=== PATIENT | female | born 1960 | race Caucasian/White ===

== ENCOUNTER 2018-05-13 09:07 | Day surgery (SDC) | payer OTHER ==
[~2018-05-13 09:07] MED LIST: ALPRAZolam 0.25 MG TAB PO PRN; ALPRAZolam 0.5 MG TAB PO PRN; ASPIRIN 325 MG TAB PO ONE; ATORVASTATIN 80 MG TAB PO ONE; NITROGLYCERIN SL TABS 0.4 MG TAB SUBLINGUAL PRN; SODIUM CHLORIDE 0.9% 1,000 ML in EMPTY BAG 1 BAG IV ONE
[2018-05-13] MEDS ORDERED: LIDOCAINE 1% INJ 10MG/ML (20 ML MDV) ONE (10:46)
[2018-05-13] MEDS ORDERED: HEPARIN SODIUM 1,000 UN/ML (10ML VL) ONE (10:46)
[2018-05-13] MEDS ORDERED: VERAPAMIL 2.5 MG/ML 2 ML AMP ONE (10:46)
[2018-05-13] MEDS ORDERED: MIDAZOLAM 2 MG/2 ML VIAL IV ONE (11:18)
[2018-05-13] MEDS ORDERED: LIDOCAINE 2% INJ 20 MG/ML SQ ONE (11:24)
[2018-05-13] MEDS: LIDOCAINE 1% INJ 10MG/ML (20 ML MDV) SQ ONE ×2 (11:24→11:34)
[2018-05-13] MEDS ORDERED: fentaNYL (PF) 50 MCG/ML 2 ML AMP ONE (11:35)
[2018-05-13] MEDS ORDERED: fentaNYL (PF) 50 MCG/ML 2 ML AMP IV ONE (11:37)
[2018-05-13] MEDS ORDERED: BIVALIRUDIN BOLUS 250 MG/50 ML IV ONE (11:49)
[2018-05-13] MEDS ORDERED: BIVALIRUDIN 250 MG in SODIUM CHLORIDE 0.9% 50 ML IV ONE (11:49)
[2018-05-13] MEDS ORDERED: NITROGLYCERIN 1000MCG/10ML SYRINGE INTRACORON ONE (11:57)
[2018-05-13] MEDS ORDERED: CLOPIDOGREL 75 MG TAB ONE ×3 (12:02→12:10)
[2018-05-13] MEDS ORDERED: CLOPIDOGREL 75 MG TAB PO ONE (12:11)
[2018-05-13] MEDS ORDERED: IOPAMIDOL-370 100ML BTL INJ ONE (12:11)
[2018-05-13] MEDS ORDERED: RX INFO: IV CONTRAST WAS GIVEN 1 EACH MISC MISCELLANE PRN (12:16)
[2018-05-13] MEDS ORDERED: MAG HYDROX/AL HYDROX/SIMETH 30 ML CUP PO PRN (12:16)
[2018-05-13] MEDS ORDERED: NITROGLYCERIN SL TABS 0.4 MG TAB SUBLINGUAL PRN (12:16)
[2018-05-13] MEDS ORDERED: ATROPINE SULFATE 0.1 MG/ML 10ML SYRINGE IV PRN (12:16)
[2018-05-13] MEDS ORDERED: ZOLPIDEM 5 MG TAB PO PRN (12:16)
[2018-05-13 17:55] VITALS: BMI 29.5
[2018-05-13] MEDS: SODIUM CHLORIDE 0.9% 1,000 ML IV SCH (18:04)
[2018-05-13] MEDS: METOPROLOL TARTRATE 50 MG TAB PO SCH (19:53)
[2018-05-13] MEDS: BALSALAZIDE DISODIUM 750 MG CAPSULE PO SCH ×2 (19:54→19:56)
[2018-05-13] MEDS ORDERED: LISINOPRIL 5 MG TAB PO SCH (21:00)
[2018-05-13] MEDS ORDERED: MESALAMINE 4 GM/60 ML ENEMA RECTAL SCH (21:00)
[2018-05-13] MEDS ORDERED: ATORVASTATIN 80 MG TAB PO SCH (21:00)
--- NOTE | 2018-05-13 22:37 | CC ---
CARDIAC CATHETERIZATION REPORT LEFT HEART CATHETERIZATION AND PTCA AND STENTING OF CIRCUMFLEX CORONARY ARTERY WITH A DRUG-ELUTING STENT: PROCEDURE: 1. Left heart catheterization and coronary angiography. 2. Percutaneous transluminal coronary angioplasty and stenting of mid circumflex coronary artery with a drug-eluting stent. PERFORMED BY: Dr. Surekha Murcia. Moderate conscious sedation time was 52 minutes. Patient was administered Versed, and oxygen saturation, hemodynamics and EKG were monitored closely. CLINICAL INFORMATION: Mrs. Alyssia Scott is a 58-year-old lady with hypertension, hyperlipidemia, who also has colitis. She has had a previous abnormal stress test with inferior wall reversible defect in the inferior apical lateral portion of left ventricle and was advised coronary angiography after due discussion of rationale, risks, benefits and options. She was brought in for the procedure electively. PROCEDURE NOTE: Under local anesthesia and strict aseptic precautions, I tried to attempt an access from the right radial. Because of difficulty in advancing the wire, I abandoned the procedure, put a Band-Aid, and went to the right femoral approach. Under local anesthesia and strict aseptic precautions, after abandoning the approach from the right radial, I proceeded to place a 6-Tajik introducer in the right femoral artery. Standard Sameera catheters were used to perform coronary angiography and I used a pigtail catheter to check LV pressure, but LV gram was not performed. I noted that there was a significant mid circumflex lesion. This was addressed by stenting with a drug-eluting stent. Following the procedure, I placed an Angio-Seal device and secured hemostasis in the right groin. Because of some mild oozing I applied a FemoStop for 3 hours. The right radial site was clean and dry with a with a good pulse, and manual compression was used for this and a pressure bandage applied. CARDIAC CATHETERIZATION FINDINGS: The left ventricular end-diastolic pressure was about 10-12 mmHg without any gradient across the aortic valve. CORONARY ANGIOGRAPHY FINDINGS: RIGHT CORONARY ARTERY: Technically a large dominant vessel, very tortuous distally. Gives off a small PLV, large PDA and no significant disease. LEFT MAIN CORONARY ARTERY: Short patent vessel, free of significant disease, that immediately bifurcates into LAD and circumflex. LEFT ANTERIOR DESCENDING CORONARY ARTERY: Good-caliber vessel. Gives off septal and diagonal branches, runs all the way to the apex, has minor irregularities. No significant disease in the LAD system. The distal 1/4 of the LAD has diffuse disease noted. LEFT POSTERIOR CIRCUMFLEX CORONARY ARTERY: Technically a nondominant vessel. Gives off an obtuse marginal branch in the AV groove branch. It then continues distally as a posterolateral branch. Immediately after the first obtuse marginal branch, there is a very eccentric 80% stenosis involving the mid circumflex, best seen in the AP caudal projection, frame #7. Distally this is a large vessel that curves over and supplies the entire inferoapical lateral wall of the left ventricle. There was no gradient across the aortic valve. LV gram was not performed. FINAL IMPRESSION: This patient has a codominant system with an 80% eccentric mid circumflex lesion. No significant disease in LAD or RCA. Filling pressures are normal without any gradient across the aortic valve. Advised PCI of circumflex, which was performed in the same setting. PCI PROCEDURE DETAILS: A standard left Sameera guide catheter was used to cannulate the left coronary artery. A run-through wire was used to cross the lesion. Without predilatation, a 4.0 diameter, 8 mm long Xience drug-eluting stent was deployed at 13 atmospheres. Patient had chest pain and inferior ST elevation. Excellent angiographic result without complication was achieved. The patient received Angiomax and bolus and infusion as per protocol. She also received 600 mg of Plavix. Excellent angiographic result without complication was achieved. The sheath was taken out and Angio-Seal device used to secure hemostasis and she was sent to the room in stable condition. Results were discussed with the patient and her . I expect she will be discharged tomorrow if she remains stable. MMODL / IJN: [id number] /
[2018-05-14] MEDS: SODIUM CHLORIDE 0.9% 1,000 ML IV SCH (05:54)
[2018-05-14 06:48] LABS: Basophils # (A) 0.1 k/uL (0-0.2); Basophils % (A) 1 %; Eosinophils # (A) 0.3 k/uL (0-0.7); Eosinophils % (A) 5 %; HCT 39.1 % (34.0-46.0); HGB 12.3 gm/dL (11.4-16.0); Hypochromasia Slight; Lymphocytes # (A) 2.3 k/uL (1.0-4.8); Lymphocytes % (A) 37 %; MCH 27.6 pg (25.0-35.0); MCHC 31.5 g/dL (31.0-37.0); MCV 87.7 fL (80.0-100.0); Mean Platelet Volume 7.3; Monocytes # (A) 0.5 k/uL (0-1.0); Monocytes % (A) 8 %; Neutrophils # (A) 2.8 k/uL (1.3-7.7); Neutrophils % (A) 47 %; Platelet Count 378 k/uL (150-450); RBC 4.46 m/uL (3.80-5.40); RDW 14.2 % (11.5-15.5); WBC 6.1 k/uL (3.8-10.6)
[2018-05-14 06:59] LABS: Anion Gap 10 mmol/L; Blood Urea Nitrogen 14 mg/dL (7-17); Calcium 8.9 mg/dL (8.4-10.2); Carbon Dioxide 27 mmol/L (22-30); Chloride 100 mmol/L (98-107); Glucose 243 mg/dL (74-99); Potassium 4.4 mmol/L (3.5-5.1); Sodium 137 mmol/L (137-145)
[2018-05-14] MEDS: BALSALAZIDE DISODIUM 750 MG CAPSULE PO SCH (08:27)
[2018-05-14] MEDS: METOPROLOL TARTRATE 50 MG TAB PO SCH (08:28)
[2018-05-14] MEDS ORDERED: ASPIRIN 81 MG PO SCH (09:00)
[2018-05-14] MEDS ORDERED: CLOPIDOGREL 75 MG TAB PO SCH (09:00)
[2018-05-14] MEDS ORDERED: TRIAMTERENE-HCTZ 37.5-25MG 1 EACH CAP PO SCH (09:00)
[2018-05-14 09:37] VITALS: BP 117/73; PULSE 78; RESP 20; TEMP 97.5
--- NOTE | 2018-05-14 16:56 | DS ---
DISCHARGE SUMMARY DISCHARGE NOTE: DATE OF ADMISSION: 05/13/2018 DATE OF DISCHARGE: 05/14/2018. DIAGNOSES: 1. Unstable angina with abnormal stress test. 2. Hypertension. 3. Hyperlipidemia. Mrs. Scott was admitted to the hospital yesterday for a cardiac cath that was performed initially from right radial, but because of inability to gain good access, we went from the right femoral approach. Cardiac cath revealed an 80% eccentric circumflex lesion that was stented with a drug-eluting stent. Post-procedure course was uneventful. Right groin is clean and dry. Blood pressure is 128/70. Pulse rate is 70 per minute. S1, S2 heard normally. Lungs are clear. Abdomen and lower extremity exam unchanged. Right groin is clean and dry. Right radial pulse is good. Right femoral pulse is good. EKG and labs are good. I reviewed the findings with the patient, recommended that she can be discharged, and I will see her in the office in the next 48 hours. Discharge instructions regarding activity, diet and dual antiplatelet therapy were given. MMODL / IJN: [id number] /
== END 2018-05-14 10:36 | disposition home or self-care (01) ==
LOC: CATHCVL 09:07 → 3SCARD 15:11 → CATHCVL 05-14 10:36
PROVIDERS: ATTEND Internal Medicine Interventional Cardiology
DX: I25.110 Atherosclerotic heart disease of native coronary artery with unstable angina pectoris (principal); I10 Essential (primary) hypertension; Z87.891 Personal history of nicotine dependence; E78.2 Mixed hyperlipidemia; Z86.018 Personal history of other benign neoplasm; Z79.82 Long term (current) use of aspirin; Z79.899 Other long term (current) drug therapy; Z82.49 Family history of ischemic heart disease and other diseases of the circulatory system
CPT/HCPCS: 93458; 80048; 85025; C9600; C1760; C1887; C1769 ×5; C1894 ×2; C1874; J2250; J2001; J3010; J0583; Q9967

== ENCOUNTER 2021-07-22 07:18 | Day surgery (SDC) | payer OTHER ==
[2021-07-21 10:44] VITALS: BMI 28.8
[~2021-07-22 07:18] MED LIST changes: -ALPRAZolam 0.25 MG TAB PO PRN; -ALPRAZolam 0.5 MG TAB PO PRN; -ASPIRIN 325 MG TAB PO ONE; -ATORVASTATIN 80 MG TAB PO ONE; +LACTATED RINGERS 1,000 ML IV SCH; -NITROGLYCERIN SL TABS 0.4 MG TAB SUBLINGUAL PRN; -SODIUM CHLORIDE 0.9% 1,000 ML in EMPTY BAG 1 BAG IV ONE
[2021-07-22 07:38] VITALS: TEMP 97.7
[2021-07-22] MEDS ORDERED: PROPOFOL 10 MG/ML 20 ML VIAL IV ONE (08:36)
--- NOTE | 2021-07-22 09:02 | P.PCN ---
Date of Procedure: 07/22/21 Procedure(s) Performed: BRIEF HISTORY: Patient is a 61-year-old pleasant white female scheduled for an elective colonoscopy as a part of surveillance of ulcerative colitis diagnosed in 2009. She is currently maintained on mesalamine and was very months at bedtime and remains in clinical remission. PROCEDURE PERFORMED: Colonoscopy with biopsy and snare polypectomy.. PREOPERATIVE DIAGNOSIS: Long-standing history of ulcerative colitis. IV sedation per Anesthesia. PROCEDURE: After informed consent was obtained, the patient, was brought into the endoscopy unit. IV sedation was administered by Anesthesia under continuous monitoring. Digital rectal examination was normal. Initially the Olympus CF-160 flexible video colonoscope was then inserted in the rectum, gradually advanced into the cecum without any difficulty. Careful examination was performed as the scope was gradually being withdrawn. Ileocecal valve and the appendiceal orifice were visualized and appeared normal. Prep was excellent. Mucosa of the cecum, ascending colon, transverse colon appeared normal., Mucosa of the sigmoid co eric, and rectum had mild erythema consistent with proper sigmoiditis and biopsies were done from this area. In the sigmoid colon there was a 1 cm polyp removed by snare polypectomy. In the distal rectum there was a 1 cm and 5 limited polyp removed by snare polypectomy. Retroflexion was performed in the rectum and no lesions were seen. The patient tolerated the procedure well. IMPRESSION: Mild areas of erythema in the rectum and the sigmoid colon consistent with mild proctosigmoiditis 1 cm pseudopolyps in the sigmoid colon status post polypectomy 5 mm and once intermittent rectal polyps status post polypectomy Right colon and transverse colon appeared normal RECOMMENDATIONS: Findings of this examination were discussed with the patient as well as her family. She was advised to follow with the biopsy results. If the biopsy has no evidence of dysplasia she can have a repeat colonoscopy in 2 years..
[2021-07-22 09:17] VITALS: BP 121/82; PULSE 64; RESP 16
== END 2021-07-22 09:38 | disposition home or self-care (01) ==
LOC: ORWHC2ENDO 07:18
PROVIDERS: ATTEND Internal Medicine Gastroenterology
DX: K51.90 Ulcerative colitis, unspecified, without complications (principal); Z79.02 Long term (current) use of antithrombotics/antiplatelets; Z79.82 Long term (current) use of aspirin; Z79.899 Other long term (current) drug therapy; K63.89 Other specified diseases of intestine; K63.5 Polyp of colon; K62.1 Rectal polyp; I25.10 Atherosclerotic heart disease of native coronary artery without angina pectoris; Z95.5 Presence of coronary angioplasty implant and graft; I10 Essential (primary) hypertension; E78.5 Hyperlipidemia, unspecified; E11.9 Type 2 diabetes mellitus without complications; Z86.73 Personal history of transient ischemic attack (TIA), and cerebral infarction without residual deficits; Z98.51 Tubal ligation status; Z87.891 Personal history of nicotine dependence
CPT/HCPCS: 88305; 45380; 45385; J2704